=== PATIENT | male | born 1940 | race Caucasian/White ===

== ENCOUNTER 2023-07-31 11:40 | Emergency (ER) | payer MEDICAID ==
[~2023-07-31] VITALS: Ht 160 cm; Wt 69.0 kg
[2023-07-31 11:45] VITALS: O2SAT 95
[2023-07-31 21:12] VITALS: BP 190/70; PULSE 54; RESP 14; TEMP 97.7
[2023-07-31] MEDS ORDERED: AMLODIPINE 10MG TABLET PO ONE (21:15)
[2023-07-31] MEDS: AMLODIPINE 5MG TABLET PO NR (21:28)
== END 2023-07-31 21:29 | disposition home or self-care (01) ==
LOC: ER 11:40
DX: T83.091A Other mechanical complication of indwelling urethral catheter, initial encounter (principal); Z98.890 Other specified postprocedural states; Y92.89 Other specified places as the place of occurrence of the external cause
CPT/HCPCS: 51702; 99285; Z7610